=== PATIENT | female | born 1995 | race African-American/Black ===

== ENCOUNTER 2020-05-27 03:37 | Inpatient (IN) ==
[2020-05-27] MEDS ORDERED: SODIUM CHLORIDE 0.9% 0 ML IV ONE (03:48)
[2020-05-27] MEDS ORDERED: ONDANSETRON 4 MG/2 ML VIAL IV PRN ×2 (03:48→08:18)
[2020-05-27] MEDS ORDERED: BUTORPHANOL 2 MG/ML VIAL IV PRN (03:48)
[2020-05-27] MEDS ORDERED: AMPICILLIN 2,000 MG VIAL ONE (03:48)
[2020-05-27] MEDS ORDERED: BUTORPHANOL 2 MG/ML VIAL ONE (03:48)
[2020-05-27] MEDS ORDERED: CLINDAMYCIN INJ 900 MG in PREMIX 1 EACH IV SCH (04:00)
[2020-05-27] MEDS ORDERED: LACTATED RINGERS 1,000 ML IV SCH (04:00)
[2020-05-27] MEDS ORDERED: hydrOXYzine HCL 25 MG/1 ML VIAL IM PRN (04:05)
[2020-05-27] MEDS ORDERED: CITRIC ACID/SODIUM CITRATE 30 ML UDCUP PO ONE (04:05)
[2020-05-27] MEDS ORDERED: PROMETHAZINE 25 MG/1 ML VIAL IM ONE (04:05)
[2020-05-27] MEDS ORDERED: diphenhydrAMINE 50 MG/1 ML VIAL IV PRN ×2 (04:05)
[2020-05-27] MEDS ORDERED: ePHEDrine 50 MG/ML VIAL IV PRN (04:05)
[2020-05-27] MEDS ORDERED: FAMOTIDINE 20 MG/2 ML VIAL IV ONE (04:05)
[2020-05-27] MEDS ORDERED: NALOXONE 0.4 MG/ML VIAL IV PRN (04:05)
[2020-05-27] MEDS ORDERED: ONDANSETRON 4 MG/2 ML VIAL IV ONE (04:05)
[2020-05-27] MEDS ORDERED: METHYLERGONOVINE 0.2 MG/1 ML AMP ONE (04:23)
[2020-05-27] MEDS ORDERED: miSOPROStoL 200 MCG TABLET ONE (04:23)
[2020-05-27] MEDS ORDERED: OXYTOCIN/LR 20 UNIT/1,000 ML BAG IV ONE ×3 (04:23→08:18)
[2020-05-27] MEDS ORDERED: TRANEXAMIC ACID 1,000 MG/10 ML VIAL ONE (04:23)
[2020-05-27] MEDS ORDERED: MEPERIDINE 50 MG/1 ML VIAL ONE (04:24)
[2020-05-27] MEDS ORDERED: CARBOPROST TROMETHAMINE 250 MCG/ML AMP IM ONE (04:24)
[2020-05-27] MEDS ORDERED: LIDOCAINE 1% 50 ML VIAL ONE (04:24)
[2020-05-27] MEDS ORDERED: SODIUM CHLORIDE 0.9% 100 ML IV ONE (04:25)
[2020-05-27] MEDS ORDERED: fentaNYL 2 MCG/ROPIV 0.2% EPID 100 ML EPIDURAL SCH (04:30)
[2020-05-27] MEDS ORDERED: OXYTOCIN 10 UNIT/ML VIAL ONE (05:32)
[2020-05-27] MEDS ORDERED: MEPERIDINE 50 MG/1 ML VIAL IV PRN (05:47)
[2020-05-27] MEDS ORDERED: OXYTOCIN 10 UNIT/ML VIAL IM ONE (05:47)
[2020-05-27 06:21] LABS: Cord Venous Blood HCO3 20.8 MMOL/L; Cord Venous Blood PCO2 40.5 MMHG; Cord Venous Blood PO2 33.1
[2020-05-27] MEDS ORDERED: LANOLIN 50% CREAM 0.3 OZ TUBE TOP PRN (08:18)
[2020-05-27] MEDS ORDERED: ACETAMINOPHEN 325 MG TABLET PO PRN (08:18)
[2020-05-27] MEDS ORDERED: HYDROCORTISONE 2.5% RECTAL CREAM 30 GM TUBE TOP PRN (08:18)
[2020-05-27] MEDS ORDERED: BISACODYL 10 MG SUPP RECTAL PRN (08:18)
[2020-05-27] MEDS ORDERED: BENZOCAINE 20%/MENTHOL 0.5% SPRAY 56 GM CAN TOP PRN (08:18)
[2020-05-27] MEDS ORDERED: RHO(D) IMMUNE GLOBULIN 300 MCG SYRINGE IM ONE (08:18)
[2020-05-27] MEDS ORDERED: MEASLES/MUMPS/RUBELLA VACCINE 0.5 ML VIAL SUBCUT ONE (08:18)
[2020-05-27] MEDS ORDERED: DIPH/TET/ACEL PERT BOOSTER VACCINE 0.5 ML VIAL IM ONE (08:18)
[2020-05-27] MEDS ORDERED: WITCH HAZEL PADS 100/JAR TOP PRN (08:18)
[2020-05-27] MEDS: KETOROLAC 30 MG/1 ML VIAL IV SCH ×3 (08:31→19:30)
[2020-05-27] MEDS: DOCUSATE SODIUM 100 MG CAPSULE PO SCH ×2 (08:34→20:06)
[2020-05-27] MEDS: SERTRALINE 50 MG TABLET PO SCH (08:34)
[2020-05-28] MEDS: KETOROLAC 30 MG/1 ML VIAL IV SCH (01:18)
[2020-05-28] MEDS ORDERED: IBUPROFEN 800 MG TABLET PO SCH ×2 (05:30→07:30)
[2020-05-28 06:37] LABS: Basophils % 0.2 % (0.0-0.8); Eosinophils # 0.1 10*3/uL (0.0-0.87); Eosinophils % 0.5 % (0.00-10.9); Hematocrit 29.1 VOL% (35.7-47.0); Hemoglobin 9.3 GM/DL (12.0-16.0); Immature Granulocytes % 0.9 %; Lymphocytes # 1.7 10*3/uL (1.4-4.0); Lymphocytes % 16.3 % (21.3-54.2); Mean Corpuscular Volume 87.4 FL (87-102); Mean Platelet Volume 10.8 FL (9.6-12.0); Neutrophils % 75.1 % (38.7-73.9); Platelet Count 165 T/CUMM (130-400); Red Blood Count 3.33 MC/CUMM (3.8-5.5); Red Cell Distribution Width 15.9 % (9.3-17.3); White Blood Count 10.6 T/CUMM (4-12)
[2020-05-28 08:07] VITALS: BP 146/90
[2020-05-28] MEDS: DOCUSATE SODIUM 100 MG CAPSULE PO SCH (08:55)
[2020-05-28] MEDS: SERTRALINE 50 MG TABLET PO SCH (08:55)
== END 2020-05-28 12:00 | disposition home or self-care (01) | DRG 807 ==
LOC: N.LDOUT 03:37 → N.LD 03:39 → N.OB 08:16
PROVIDERS: ADMIT Obstetrics & Gynecology; ATTEND Obstetrics & Gynecology